=== PATIENT | female | born 1980 | race Caucasian/White ===

== ENCOUNTER 2023-05-31 16:50 | Inpatient (IN) | payer BC, SELFPAY ==
--- NOTE | ~2023-05-31 | XR_ITS ---
EXAM: XR abdomen NG/feed tube insert DATE: 05/31/2023 20:24 HISTORY: SBO . COMPARISON: 09/17/2016. FINDINGS: Cholecystectomy clips. NG tube, tip and side port projecting over the stomach Clear lung ba ses. Normal bowel gas pattern. No organomegaly. No abnormal abdominal calcification. Regional bones a nd soft tissues normal for age. IMPRESSION: NG tube, in good position. Reviewed, dictated and finalized at location K. IMPRESSION: NG tube, in good position.
--- NOTE | ~2023-05-31 | CT_ITS ---
EXAMINATION: CT abdomen pelvis w con DATE: 05/31/2023 17:20 INDICATION: pain, hx of sbo TECHNIQUE: Computed tomography (CT) of the abdomen and pelvis was performed with 100 mL Omnipaque-350 intravenous contrast. Automated exposure control and iterative reconstruction technique were employe d. The dose-length product was 716.95 mGy-cm. COMPARISON: 09/17/2016. FINDINGS: Lower thorax: Unremarkable Liver: Normal. Biliary/Gallbladder: Gallbladder is absent. No bile duct dilation. Pancreas: No mass or duct dilation. Spleen: Normal. Adrenals:No mass. Kidneys: No mass, stone, or hydronephrosis. No large bowel dilation. Short segment narrowing of the colon at the junction of the cecum and ascend ing colon. Mild distal esophageal and gastric wall edema. Loop of dilated small bowel in the pelvis, with a focal transition point in the mid lower abdomen (coronal image 56/116). Fecalization of small bowel content. Normal appendix. Mesentery/Peritoneum: No ascites, mass, or free air. Retroperitoneum: No mass. Pelvis: The uterus is surgically absent. Small volume free pelvic fluid Soft Tissues: Soft tissues and body wall unremarkable. Bones: No acute osseous finding. IMPRESSION: Findings concerning for partial or early complete distal small bowel obstruction, with a focal transi tion point in the mid lower abdomen. Short segment narrowing in the right colon at the junction of the cecum and ascending colon, consider nonemergent outpatient referral for colonoscopy. Reviewed, dictated and finalized at location K. IMPRESSION: Findings concerning for partial or early complete distal small bowel obstructio n, with a focal transition point in the mid lower abdomen. Short segment narrowing in the right colon at the junction of the cecum and asc ending colon, consider nonemergent outpatient referral for colonoscopy.
--- NOTE | ~2023-05-31 | XR_ITS ---
EXAMINATION: XR sm bowel follow through WS DATE: 06/01/2023 16:57 INDICATION: Small bowel obstruction. TECHNIQUE: Oral contrast was administered, and a time course of radiographs of the abdomen was obtain ed. Fluoroscopy of the small bowel was not performed. Fluoroscopy exposure time was 0 minutes. The to summer number of images was 6. COMPARISON: CT abdomen pelvis 05/31/2023 FINDINGS: The nasogastric tube tip is in the stomach. Surgical clips in the right upper quadrant are likely fro m cholecystectomy. There are no dilated loops of bowel. Transit time from the stomach to proximal col on was approximately 3 hours. IMPRESSION: 1. Nonobstructive bowel gas pattern. Reviewed, dictated and finalized at location A.
--- NOTE | ~2023-05-31 | XR_ITS ---
Supine and upright views of the abdomen Clinical history: NG tube placement COMPARISON: 05/31/2023 Findings: NG tube is in satisfactory position. Bowel gas pattern is nonspecific. No evidence for obst ruction or free air. Cholecystectomy clips are present. No abnormal mass lesion or calcification is s een. Osseous structures are intact. Impression: NG tube in satisfactory position. Nonspecific bowel gas pattern. Reviewed, dictated and finalized at location . Impression: NG tube in satisfactory position. Nonspecific bowel gas pattern.
[2023-05-31 16:53] VITALS: BP 123/71; PULSE 85; RESP 16; TEMP 36.3; O2SAT 100
[2023-05-31 17:13] LABS: Basophils Percent Auto 0.4 % (0.2-1.2); Eosinophils Absolute Auto 0.1 K/mm3 (0-0.3); Hemoglobin 13.7 g/dL (12.0-15.0); Immature Granulocyte Absolute 0.02 K/mm3 (0.00-0.031); Immature Granulocyte Percent A 0.3 % (0-0.5); Lymphocytes Absolute Auto 2.76 K/mm3 (0.9-3.2); Mean Corpuscular HGB Conc 32.6 g/dl (32-36); Mean Corpuscular Hemoglobin 32.8 pg (26-34); Mean Corpuscular Volume 100.5 fl (80-100); Mean Platelet Volume 9.3 fl (7.4-10.4); Monocytes Absolute Auto 0.6 K/mm3 (0.1-0.6); Monocytes Percent Auto 8.1 % (2.6-8.5); Neutrophils Absolute Auto 3.8 K/mm3 (1.3-6.7); Neutrophils Percent Auto 52.2 % (45.5-73.1); Platelet Count Result 313 k/mm3 (150-375); Red Blood Count 4.18 M/mm3 (4.2-5.4); Red Cell Distribution Width 12.3 % (11.5-14.5); White Blood Count 7.3 K/mm3 (4.5-10.0)
[2023-05-31 17:21] LABS: Lactic Acid Reflex 0.9 mmol/L (0.7-2.0)
[2023-05-31 17:23] LABS: Alanine Aminotransferase 24 U/L (6-35); Albumin Level 4.5 g/dL (3.5-5.1); Alkaline Phosphatase 50 U/L (38-126); Anion Gap 8 mmol/L (8-16); Aspartate Amino Transferase 29 U/L (14-36); Bilirubin,Total 0.4 mg/dL (0.2-1.3); Blood Urea Nitrogen 18 mg/dL (7-17); Calcium 9.2 mg/dL (8.4-10.2); Carbon Dioxide 27 mmol/L (22-30); Chloride 103 mmol/L (98-107); Estimated CRCL calculation 96 ml/min; Estimated Glomerular Filt Rate > 60; Glucose 114 mg/dL (65-110); Lipase 233 U/L (23-300); Potassium 4.4 mmol/L (3.4-5.0); Sodium 138 mmol/L (137-145)
--- NOTE | 2023-05-31 18:04 | ED.ABDPAIN ---
HPI - Abdominal Pain General Chief Complaint: Abdominal Pain Stated Complaint: abd pain Time Seen by Provider: 05/31/23 17:33 History of Present Illness HPI narrative: Patient is a 43-year-old female presenting with lower abdominal pain. Patient states that she has had numerous surgeries on her abdomen related to endometriosis. States that she had a small bowel obstruction several years ago that was treated with an NG tube. States that she has had worsening lower abdominal pain over the last 8 days. States that she last had a bowel movement about 5 days ago. States that she has had decreased appetite but no vomiting. States she is still tolerating p.o. intake. Denies fevers or chills, chest pain, shortness of breath, cough, flank pain, dysuria, leg swelling. Related Data Home Medications Medication Instructions Recorded Confirmed fluoxetine 20 mg capsule 20 mg PO DAILY 05/31/23 05/31/23 Allergies Allergy/AdvReac Type Severity Reaction Status Date / Time oxcarbazepine Allergy Mild HIVES Verified 09/17/16 00:42 Review of Systems Review of Systems: All systems reviewed & are unremarkable except as noted in HPI and below PMFSH Past Medical History Medical History (Updated 06/09/23 @ 15:53 by Rolanda Bernal MD) Depression Surgical History Surgical History (Updated 06/01/23 @ 14:24 by Agustín Gilliam DO) History of laparoscopy History of laparoscopy-assisted vaginal hysterectomy History of umbilical hernia repair Family History Family History Mother Patient's mother is in good health Father Patient's father is in good health Sibling Patient's sister is in good health Other Cerebrovascular accident Social History Social History Smoking status: Former smoker Tobacco type: cigarettes Alcohol intake: current Drinks per week: 3 Substance use: never Substance use type: does not use Lack of Transportation: No Lack of Food: Never True Current Housing: I Have Housing Concerned About Future Housing: No Difficulty Paying Gas/Electric Bills: No Difficulty Paying for Meds: No Currently Unemployed: No Education: High School Diploma/GED Difficulty w/ Childcare or Family Care: No Spiritual care concerns: No Exam Narrative: GENERAL: Distressed secondary to abdominal pain, cooperative and pleasant HEAD: Normocephalic, atraumatic. EYES: PERRLA and EOMI. ENT: Nares clear, no rhinorrhea or epistaxis. Mucous membranes moist. NECK: Supple. CHEST: No respiratory distress. HEART: Regular rate and rhythm ABDOMEN: Soft, tender left lower quadrant with voluntary guarding, no rebound EXTREMITIES: Normal range of motion. No edema. SKIN: Warm, dry, no rash. NEURO: No focal deficits. Alert and oriented x3. PSYCH: Normal mood and affect. Course Vital Signs Vital signs: Vital Signs Temperature 97.4 F L 05/31/23 16:53 Pulse Rate 85 05/31/23 16:53 Respiratory Rate 16 05/31/23 16:53 Blood Pressure 123/71 05/31/23 16:53 Pulse Oximetry 100 05/31/23 16:53 Temperature 97.7 F 06/03/23 05:00 Pulse Rate 61 06/03/23 05:00 Respiratory Rate 14 06/03/23 05:00 Blood Pressure 100/65 06/03/23 05:00 Pulse Oximetry 92 06/03/23 05:00 Oxygen Delivery Room Air 06/02/23 20:00 MDM - Abdominal Pain MDM Narrative Medical decision making narrative: Patient is a 43-year-old female presenting with lower abdominal pain. Vitals within normal limits. Exam remarkable for the above. CT abdomen pelvis is concerning for partial versus early complete bowel obstruction with a focal transition point in the mid lower abdomen. Patient received IV Dilaudid with improvement in her pain. Her blood work is reassuring. Lactic acid is normal. Patient with some soft pressures following the Dilaudid, fluids are ongoing. Call out to surgery. Surgery was con
[2023-05-31 18:14] LABS: Appearance Urine Clear (Clear); Bilirubin Urine Negative (Negative); Blood Urine Negative (Negative); Color Urine Yellow (Yellow); Glucose Urine UA Negative (Negative); Ketones Urine Negative (Negative); Leukocyte Esterase Ur Negative LEU/UL (Negative); Nitrate Urine Negative (Negative); Protein Urine Negative (Negative); Urobilinogen Urine 0.2 mg/dL (<2.0)
[2023-05-31 18:18] LABS: Specific Grav Ur 1.095 (1.001-1.035)
[2023-05-31 18:19] LABS: Add Urine Microscopic? NO
[2023-05-31] MEDS: LACTATED RINGERS 1,000 ML 999 ML IV CONT ×2 (18:21→20:06)
[2023-05-31] MEDS: HYDROmorphone HCL INJ (*CRX) 1 MG/ML SYR IV PUSH ×2 (18:22→21:37)
[2023-05-31 18:26] VITALS: BP 93/56; PULSE 75; RESP 18; TEMP 36.5; O2SAT 100
[2023-05-31 19:16] VITALS: BP 99/52; PULSE 70; RESP 20; O2SAT 100
[2023-05-31 20:07] VITALS: BP 108/66; PULSE 84; RESP 20; O2SAT 99
[2023-05-31] MEDS: LORazepam INJ (*CRX) 2 MG/ML VIAL 0.5 MG IV PUSH (20:12)
--- NOTE | 2023-05-31 21:08 | PC.NURSE ---
Spoke with Dr. Vinson at this time r/t patient pain. New order received for dilaudid 1 mg IVP x1.
[2023-05-31] MEDS: LACTATED RINGERS 1,000 ML 100 ML IV CONT (21:38)
[2023-05-31 22:00] VITALS: BP 104/53; PULSE 73; RESP 14; TEMP 36.6; O2SAT 99
--- NOTE | 2023-05-31 22:42 | PM.IMHP ---
H&P: HPI History of Present Illness Date/Time: 05/31/23 22:42 Chief Complaint: Worsening abdominal pain. Narrative: This is a 43-year-old lady with a past medical history including but not limited to on the med doses, status post multiple abdominal intervention, a in an episode of small-bowel obstruction 5 years ago who is presenting with lower abdominal pain.? Patient states that she has had numerous surgeries on her abdomen related to endometriosis.? She reports an episode of small bowel obstruction several years ago that was managed conservatively with NPO, NG tube placement.? The patient was in her usual state of health until 8 days ago. She states that she has had worsening lower abdominal pain over the last 8 days.? Her last bowel movement was about 5 days ago.? The patient endorses decreased appetite but denied vomiting.? At the time of her admission she was still able to tolerate p.o. intake.? Denies fevers or chills, chest pain, shortness of breath, cough, flank pain, dysuria, leg swelling. At the time of her presentation, the patient is stable and afebrile with the following vital signs: A temperature of 97.4?, pulse rate 85, respirations 16, blood pressure 123/70 with a pulse ox of 100% on room air. Her CBC shows a WBC of 7.3, hemoglobin 13.7, hematocrit 40 toward the present count of 313. Her chemistry shows a sodium of 138, potassium 4.4, chloride 103, bicarbonate 27, BUN 18, creatinine 0.7 and blood glucose 114. The patient underwent a CT scan of the abdomen/pelvis with the following findings: Findings concerning for partial or early complete distal small bowel obstruction, with a focal transition point in the mid lower abdomen. Short segment narrowing in the right colon at the junction of the cecum and ascending colon, consider nonemergent outpatient referral for colonoscopy. The surgical service was consulted. Per surgery recommendation, the patient will be admitted under hospitalist service and managed with NPO, NG tube placement, IV fluid, and pain management. The patient is admitted as an inpatient for at least 2 midnights. Review of Systems Review of Systems: All systems reviewed & are unremarkable except as noted in HPI and below PMFSH Family History Family History Mother Patient's mother is in good health Father Patient's father is in good health Sibling Patient's sister is in good health Other Cerebrovascular accident Social History Social History Alcohol intake: current Meds Home Medications and Allergies Home Medications Medication Instructions Recorded Confirmed Type fluoxetine 20 mg capsule 20 mg PO DAILY 05/31/23 05/31/23 History Allergies Allergy/AdvReac Type Severity Reaction Status Date / Time oxcarbazepine Allergy Mild HIVES Verified 09/17/16 00:42 Vital Signs Vital Signs - 24 hr 05/31/23 16:53 05/31/23 18:26 05/31/23 19:16 Temperature 97.4 F L 97.7 F Pulse Rate 85 75 70 Respiratory Rate 16 18 20 Blood Pressure 123/71 93/56 L 99/52 L Pulse Oximetry 100 100 100 05/31/23 20:07 05/31/23 22:00 Temperature 97.8 F Pulse Rate 84 73 Respiratory Rate 20 14 Blood Pressure 108/66 104/53 L Pulse Oximetry 99 99 Exam Narrative: GENERAL: Distressed secondary to abdominal pain, cooperative and pleasant HEAD: Normocephalic, atraumatic. EYES: PERRLA and EOMI. ENT: Nares clear, no rhinorrhea or epistaxis. Mucous membranes moist. NECK: Supple. CHEST: No respiratory distress. HEART: Regular rate and rhythm ABDOMEN: Soft, tender bilateral lower quadrant with voluntary guarding, no rebound EXTREMITIES: Normal range of motion. No edema. SKIN: Warm, dry, no rash. NEURO: No focal deficits. Alert and oriented x3. PSYCH: Normal mood and affect. H&P: Results Labs Labs: Short CBC 05/31/23 Range/Units 17:05 WBC 7.3 (4.5-10.0) K/mm3 Hgb 13.7 (12.0-
[2023-06-01] MEDS: HYDROmorphone HCL INJ (*CRX) 1 MG/ML SYR 2 MG IV PUSH ×7 (00:06→17:33)
[2023-06-01 06:00] VITALS: BP 106/46; PULSE 80; RESP 14; TEMP 36.6; O2SAT 96
[2023-06-01 06:16] LABS: Hematocrit 41.4 % (37.0-47.0); Hemoglobin 13.5 g/dL (12.0-15.0); Mean Corpuscular HGB Conc 32.6 g/dl (32-36); Mean Corpuscular Hemoglobin 32.5 pg (26-34); Mean Corpuscular Volume 99.8 fl (80-100); Platelet Count Result 280 k/mm3 (150-375); Red Blood Count 4.15 M/mm3 (4.2-5.4); White Blood Count 7.4 K/mm3 (4.5-10.0)
[2023-06-01 06:36] LABS: Anion Gap 4 mmol/L (8-16); Blood Urea Nitrogen 10 mg/dL (7-17); Calcium 8.9 mg/dL (8.4-10.2); Carbon Dioxide 28 mmol/L (22-30); Chloride 102 mmol/L (98-107); Estimated CRCL calculation 111 ml/min; Estimated Glomerular Filt Rate > 60; Glucose 125 mg/dL (65-110); Magnesium 1.8 mg/dL (1.6-2.3); Potassium 3.5 mmol/L (3.4-5.0); Sodium 134 mmol/L (137-145)
[2023-06-01] MEDS: LACTATED RINGERS 1,000 ML 100 ML IV CONT (08:28)
[2023-06-01] MEDS: ENOXAPARIN 40 MG/0.4 ML SYRINGE SUB-Q (08:29)
--- NOTE | 2023-06-01 11:58 | PM.IMPN ---
Progress Note: A&P Assessment and Plan (1) SBO (small bowel obstruction): Code(s): K56.609 - Unspecified intestinal obstruction, unspecified as to partial versus complete obstruction Status: Acute Assessment and Plan: Patient not yet passing gas, IV fluids running. NGT to suction. Bowel sounds present but distant in RLQ. Bilateral lower quadrant tender to palpation, no rebound. Continue bowel rest, NG tube and IV fluids. Surgical consult placed, appreciate all recommendations. (2) Nausea: Code(s): R11.0 - Nausea Status: Acute Assessment and Plan: In addition to pain, patient experiencing nausea, no vomiting since NG placement. Ordered IV Zofran and Compazine PRN for nausea/vomiting. (3) History of depression: Code(s): Z86.59 - Personal history of other mental and behavioral disorders Status: Acute Assessment and Plan: Stable, normal mood and affect at this time. Will restart home medication when tolerating PO intake. Plan Continue NPO status NG to suction IV fluids, IV antiemetics and pain medication as needed Surgical consult Once passing gas, will plan to ADAT starting with clear liquids while NG clamped. Time Spent With Patient Time with patient: 25 - 35 minutes Subjective Date/time seen: 06/01/23 11:00 Interval history: Copied from previous chart: Chief Complaint: Worsening abdominal pain. Narrative: This is a 43-year-old lady with a past medical history including but not limited to on the med doses, status post multiple abdominal intervention, a in an episode of small-bowel obstruction 5 years ago who is presenting with lower abdominal pain.? Patient states that she has had numerous surgeries on her abdomen related to endometriosis.? She reports an episode of small bowel obstruction several years ago that was managed conservatively with NPO, NG tube placement.? The patient was in her usual state of health until 8 days ago.? She states that she has had worsening lower abdominal pain over the last 8 days.? Her last bowel movement was about 5 days ago.? The patient endorses? decreased appetite but denied vomiting.? At the time of her admission she was still able to tolerate? p.o. intake.? Denies fevers or chills, chest pain, shortness of breath, cough, flank pain, dysuria, leg swelling. At the time of her presentation, the patient is stable and afebrile with the following vital signs:? A temperature of 97.4?, pulse rate 85, respirations 16, blood pressure 123/70 with a pulse ox of 100% on room air.? Her CBC shows a WBC of 7.3, hemoglobin 13.7, hematocrit 40 toward the present count of 313.? Her chemistry shows a sodium of 138, potassium 4.4, chloride 103, bicarbonate 27, BUN 18, creatinine 0.7 and blood glucose 114.? The patient underwent a CT scan of the abdomen/pelvis with the following findings: ? Findings concerning for partial or early complete distal small bowel obstruction, with a focal transition point in the mid lower abdomen. Short segment narrowing in the right colon at the junction of the cecum and ascending colon, consider nonemergent outpatient referral for colonoscopy.? The surgical service was consulted.? Per surgery recommendation, the patient will be admitted under hospitalist service and managed with NPO, NG tube placement, IV fluid, and pain management. The patient is admitted as an inpatient for at least 2 midnights. 06/01 Rounding: Patient reports she has continued nausea and lower abdominal pain. She is not yet passing gas. She has had no vomiting since NG tube placement. Patient reports that she has had 1 prior episode of small-bowel obstruction that was managed medically. Surgery has been consulted but has not yet seen the patient per patient report. IV fluids and pain management are on board, patient requesting medication for nausea. Review of Systems Review of Systems: All systems reviewed & are unremarkable except as noted in HPI and below Exam Na
[2023-06-01 12:13] LABS: Glucose Point of Care 107 mg/dl (65-105)
[2023-06-01] MEDS: ONDANSETRON INJ 4 MG/2 ML VIAL IV PUSH ×2 (12:43→17:38)
--- NOTE | 2023-06-01 14:19 | PM.CNGS ---
Assessment and Plan Assessment and plan (1) SBO (small bowel obstruction): Code(s): K56.609 - Unspecified intestinal obstruction, unspecified as to partial versus complete obstruction Status: Acute Assessment and Plan: I have reviewed the imaging and discussed the findings with the patient. She has evidence of a distal small-bowel obstruction. This is similar presentation to what she had fiber 6 years ago. She is feeling somewhat better since the NG tube was placed but is still not passing flatus. Abdominal x-ray this morning shows nonspecific bowel gas pattern. I would like to get a Gastrografin small-bowel follow-through to further assess for partial versus complete obstruction. Discussed with patient possibility of slowly advancing diet if there is no obstruction. Also discussed possible need for surgery if complete obstruction is identified. Patient voiced her understanding. History of Present Illness Consult details Consult date: 06/01/23 Reason for consult: other (Small-bowel obstruction) Requesting physician: Rolanda Bernal MD Narrative: This is a 43-year-old woman who I am asked to see for a small-bowel obstruction. She presented to the emergency department yesterday with worsening bloating and nausea. She has not had a bowel movement for 6 days other than a couple small episodes of diarrhea. She states that she typically has regular bowel movements and eats very healthy. She was in [facility] and began experiencing some of this bloating and cramping. This continued to worsen despite trying to eat a high-fiber diet and drinking plenty of water. She was constantly feeling full and had to force herself to try to eat. She does have a history of small-bowel obstruction in the past. She states that this was about 5 or 6 years ago and was treated with NG decompression and bowel rest. In the emergency department she was noted to have evidence of a small-bowel obstruction with partial or complete distal transition point. NG tube was placed in the emergency department but has not had much output all since being placed. She denies passing any flatus. Her pain is mostly in the left lower quadrant and it is more colicky crampy pain. Review of Systems Review of Systems: All systems reviewed & are unremarkable except as noted in HPI and below Constitutional: Constitutional: Denies chills and Denies fever(s) Eyes: Eyes: Denies change in vision ENT: Denies hearing loss, Denies neck pain and Denies sore throat Cardiovascular: Cardiovascular: Denies chest pain and Denies dyspnea Respiratory: Respiratory: Denies cough, Denies dyspnea and Denies wheezing Gastrointestinal: Gastrointestinal: Reports as per HPI Genitourinary: Genitourinary: Denies hematuria and Denies dysuria Musculoskeletal: Musculoskeletal: Denies arthralgias, Denies joint swelling and Denies neck pain Allergic/Immunologic: Allergic/Immunologic: Denies wheezing [facility] Past Medical History Medical History (Updated 06/01/23 @ 14:24 by Agustín Gilliam DO) Depression Surgical History Surgical History (Updated 06/01/23 @ 14:24 by Agustín Gilliam DO) History of laparoscopy History of laparoscopy-assisted vaginal hysterectomy History of umbilical hernia repair Family History Family History Mother Patient's mother is in good health Father Patient's father is in good health Sibling Patient's sister is in good health Other Cerebrovascular accident Social History Social History Smoking status: Former smoker Tobacco type: cigarettes Alcohol intake: current Drinks per week: 3 Substance use: never Substance use type: does not use Lack of Transportation: No Lack of Food: Never True Current Housing: I Have Housing Concerned About Future Housing: No Difficulty Paying Gas/Electric Bills: No
[2023-06-01 18:09] VITALS: BP 106/58; PULSE 84; RESP 14; TEMP 36.7; O2SAT 91
[2023-06-01 20:00] VITALS: PULSE 84; RESP 14; O2SAT 91
[2023-06-01] MEDS: PROCHLORPERAZINE EDISYLATE 10 MG/2 ML VIAL IV PUSH (20:14)
[2023-06-01 21:38] VITALS: BP 99/49; PULSE 103; RESP 14; TEMP 36.9; O2SAT 95
[2023-06-02] MEDS: LACTATED RINGERS 1,000 ML 100 ML IV CONT (04:00)
[2023-06-02 06:00] VITALS: BP 110/51; PULSE 68; RESP 14; TEMP 37.2; O2SAT 95
[2023-06-02 06:22] LABS: Basophils Percent Auto 0.4 % (0.2-1.2); Eosinophils Percent Auto 0.2 % (0-4.4); Hematocrit 36.6 % (37.0-47.0); Hemoglobin 11.9 g/dL (12.0-15.0); Immature Granulocyte Absolute 0.01 K/mm3 (0.00-0.031); Immature Granulocyte Percent A 0.2 % (0-0.5); Lymphocytes Absolute Auto 1.81 K/mm3 (0.9-3.2); Lymphocytes Percent Auto 39.9 % (18.3-44.2); Mean Corpuscular HGB Conc 32.5 g/dl (32-36); Mean Corpuscular Hemoglobin 32.3 pg (26-34); Mean Corpuscular Volume 99.5 fl (80-100); Mean Platelet Volume 8.8 fl (7.4-10.4); Monocytes Absolute Auto 0.5 K/mm3 (0.1-0.6); Monocytes Percent Auto 11.2 % (2.6-8.5); Neutrophils Absolute Auto 2.2 K/mm3 (1.3-6.7); Neutrophils Percent Auto 48.1 % (45.5-73.1); Platelet Count Result 231 k/mm3 (150-375); Red Blood Count 3.68 M/mm3 (4.2-5.4); Red Cell Distribution Width 11.7 % (11.5-14.5); White Blood Count 4.5 K/mm3 (4.5-10.0)
[2023-06-02 06:38] LABS: Alanine Aminotransferase 19 U/L (6-35); Albumin Level 3.6 g/dL (3.5-5.1); Alkaline Phosphatase 43 U/L (38-126); Anion Gap 2 mmol/L (8-16); Aspartate Amino Transferase 18 U/L (14-36); Bilirubin,Total 0.5 mg/dL (0.2-1.3); Blood Urea Nitrogen 9 mg/dL (7-17); Calcium 8.5 mg/dL (8.4-10.2); Carbon Dioxide 32 mmol/L (22-30); Chloride 103 mmol/L (98-107); Estimated CRCL calculation 111 ml/min; Estimated Glomerular Filt Rate > 60; Glucose 91 mg/dL (65-110); Lipase 418 U/L (23-300); Potassium 3.8 mmol/L (3.4-5.0); Sodium 137 mmol/L (137-145)
[2023-06-02] MEDS: ONDANSETRON INJ 4 MG/2 ML VIAL IV PUSH (09:02)
[2023-06-02] MEDS: ENOXAPARIN 40 MG/0.4 ML SYRINGE SUB-Q (09:02)
--- NOTE | 2023-06-02 09:20 | PM.IMPN ---
Progress Note: A&P Assessment and Plan (1) SBO (small bowel obstruction): Code(s): K56.609 - Unspecified intestinal obstruction, unspecified as to partial versus complete obstruction Status: Acute Assessment and Plan: Small-bowel follow-through showed nonobstructive pattern. Patient had accidental bowel movement overnight. She has mildy hypoactive bowel sounds throughout. Left lower quadrant tenderness. Patient was given clear liquid diet overnight did not take much for dinner. This morning she is willing to try full liquids. (2) Nausea: Code(s): R11.0 - Nausea Status: Acute Assessment and Plan: Improved, PRN Zofran and Compazine available. NG tube was removed last night (3) History of depression: Code(s): Z86.59 - Personal history of other mental and behavioral disorders Status: Acute Assessment and Plan: Stable, normal mood and affect at this time. Plan Advance diet as tolerated IV fluids, IV antiemetics and pain medication as needed Time Spent With Patient Time with patient: 25 - 35 minutes Subjective Date/time seen: 06/02/23 08:00 Interval history: Copied from previous chart: Chief Complaint: Worsening abdominal pain. Narrative: This is a 43-year-old lady with a past medical history including but not limited to on the med doses, status post multiple abdominal intervention, a in an episode of small-bowel obstruction 5 years ago who is presenting with lower abdominal pain.? Patient states that she has had numerous surgeries on her abdomen related to endometriosis.? She reports an episode of small bowel obstruction several years ago that was managed conservatively with NPO, NG tube placement.? The patient was in her usual state of health until 8 days ago.? She states that she has had worsening lower abdominal pain over the last 8 days.? Her last bowel movement was about 5 days ago.? The patient endorses? decreased appetite but denied vomiting.? At the time of her admission she was still able to tolerate? p.o. intake.? Denies fevers or chills, chest pain, shortness of breath, cough, flank pain, dysuria, leg swelling. At the time of her presentation, the patient is stable and afebrile with the following vital signs:? A temperature of 97.4?, pulse rate 85, respirations 16, blood pressure 123/70 with a pulse ox of 100% on room air.? Her CBC shows a WBC of 7.3, hemoglobin 13.7, hematocrit 40 toward the present count of 313.? Her chemistry shows a sodium of 138, potassium 4.4, chloride 103, bicarbonate 27, BUN 18, creatinine 0.7 and blood glucose 114.? The patient underwent a CT scan of the abdomen/pelvis with the following findings: ? Findings concerning for partial or early complete distal small bowel obstruction, with a focal transition point in the mid lower abdomen. Short segment narrowing in the right colon at the junction of the cecum and ascending colon, consider nonemergent outpatient referral for colonoscopy.? The surgical service was consulted.? Per surgery recommendation, the patient will be admitted under hospitalist service and managed with NPO, NG tube placement, IV fluid, and pain management. The patient is admitted as an inpatient for at least 2 midnights. 06/01 Rounding: Patient reports she has continued nausea and lower abdominal pain. She is not yet passing gas. She has had no vomiting since NG tube placement. Patient reports that she has had 1 prior episode of small-bowel obstruction that was managed medically. Surgery has been consulted but has not yet seen the patient per patient report. IV fluids and pain management are on board, patient requesting medication for nausea. 06/02 Rounding: Patient reports that she did have an accidental bowel movement while sleeping overnight. Patient reports that her nausea is much improved her pain seems to be concentrated to the left lower quadrant of the abdomen. Patient denies any difficulty breathing, chest pain or any
--- NOTE | 2023-06-02 13:22 | PM.PNGS ---
Progress Note: A&P Assessment and Plan (1) SBO (small bowel obstruction): Code(s): K56.609 - Unspecified intestinal obstruction, unspecified as to partial versus complete obstruction Status: Acute Assessment and Plan: Continue clear liquids. Advance diet once pain has resolved. Subjective Subjective Date/Time Seen: 06/02/23 13:22 Interval history: Bowels moving. NG removed yesterday afternoon. Still having LLQ pain. Not ambulating much yet. Exam GI: Inspection: non-distended GI Palp: Yes Soft to palpation and Yes Tenderness to palpation present (GI) (LLQ) Auscultation: normal bowel sounds Objective Data Vital Signs Vital Signs: Vital Signs - 24 hr 06/01/23 18:09 06/01/23 20:00 06/01/23 21:38 Temperature 36.7 C 36.9 C Pulse Rate 84 84 103 H Respiratory Rate 14 14 14 Blood Pressure 106/58 L 99/49 L Pulse Oximetry 91 91 95 Oxygen Delivery Room Air 06/02/23 06:00 Temperature 37.2 C Pulse Rate 68 Respiratory Rate 14 Blood Pressure 110/51 L Pulse Oximetry 95 Oxygen Delivery Intake/Output Intake/Output: Intake & Output 05/30/23 05/31/23 06/01/23 06/02/23 23:59 23:59 23:59 23:59 Intake Total 1000 2360 240 Balance 1000 2360 240 Meds/Results Medications: Active Medications Generic Name Dose Route Start Last Admin Trade Name Freq PRN Reason Stop Dose Admin Enoxaparin Sodium 40 mg 06/01/23 09:00 06/02/23 09:02 Enoxaparin 40 Mg/0.4 Ml Syringe SUB-Q 40 mg DAILY TAMIKO Administration Hydromorphone HCl 2 mg 05/31/23 23:52 06/01/23 17:33 Hydromorphone Hcl Inj (*Crx) 1 Mg/Ml Syr IV PUSH 2 mg Q2H PRN Administration Pain Rated 7-10 Ondansetron HCl 4 mg 06/01/23 12:23 06/02/23 09:02 Ondansetron Inj 4 Mg/2 Ml Vial IV PUSH 4 mg Q4H PRN Administration Nausea And Vomiting Prochlorperazine Edisylate 10 mg 06/01/23 12:23 06/01/23 20:14 Prochlorperazine Edisylate 10 Mg/2 Ml Vial IV PUSH 10 mg Q6H PRN Administration Nausea And Vomiting Radiology Results: ITS Impressions Abdomen/Pelvis CT 05/31/23 17:49 IMPRESSION: Findings concerning for partial or early complete distal small bowel obstruction, with a focal transition point in the mid lower abdomen. Short segment narrowing in the right colon at the junction of the cecum and ascending colon, consider nonemergent outpatient referral for colonoscopy. Abdomen X-Ray 06/01/23 05:44 Impression: NG tube in satisfactory position. Nonspecific bowel gas pattern. Small Bowel X-Ray 06/01/23 16:59 IMPRESSION: 1. Nonobstructive bowel gas pattern. Labs Labs: Laboratory Results - last 24 hr 06/02/23 06:07 WBC 4.5 RBC 3.68 L Hgb 11.9 L Hct 36.6 L MCV 99.5 MCH 32.3 MCHC 32.5 RDW 11.7 Plt Count 231 MPV 8.8 Immature Gran % (Auto) 0.2 Neut % (Auto) 48.1 Lymph % (Auto) 39.9 [place] % (Auto) 11.2 H Eos % (Auto) 0.2 Baso % (Auto) 0.4 Lymph # (Auto) 1.81 [place] # (Auto) 0.5 Eos # (Auto) 0.0 Baso # (Auto) 0.0 Abs Immat Gran (auto) 0.01 Absolute Neuts (auto) 2.2 Absolute Nucleated RBC 0.0 Nucleated RBC % 0.0 Sodium 137 Potassium 3.8 Chloride 103 Carbon Dioxide 32 H Anion Gap 2 L BUN 9 Creatinine 0.60 L Estim Creat Clear Calc 111 Estimated GFR > 60 Glucose 91 Calcium 8.5 Total Bilirubin 0.5 AST 18 ALT 19 Alkaline Phosphatase 43 Total Protein 6.0 L Albumin 3.6 Lipase 418 H
[2023-06-02 14:00] VITALS: BP 94/56; PULSE 63; RESP 18; TEMP 36.4; O2SAT 98
[2023-06-02] MEDS: ACETAMINOPHEN 325 MG TABLET 650 MG PO (17:43)
[2023-06-02 19:51] VITALS: BP 113/78; PULSE 79; RESP 16; TEMP 36.6; O2SAT 98
[2023-06-03 05:00] VITALS: BP 100/65; PULSE 61; RESP 14; TEMP 36.5; O2SAT 92
[2023-06-03 07:39] LABS: Basophils Percent Auto 0.3 % (0.2-1.2); Eosinophils Absolute Auto 0.1 K/mm3 (0-0.3); Eosinophils Percent Auto 1.5 % (0-4.4); Hematocrit 38.2 % (37.0-47.0); Hemoglobin 12.3 g/dL (12.0-15.0); Immature Granulocyte Absolute 0.01 K/mm3 (0.00-0.031); Immature Granulocyte Percent A 0.3 % (0-0.5); Lymphocytes Absolute Auto 1.83 K/mm3 (0.9-3.2); Lymphocytes Percent Auto 46.1 % (18.3-44.2); Mean Corpuscular HGB Conc 32.2 g/dl (32-36); Mean Corpuscular Hemoglobin 32.3 pg (26-34); Mean Corpuscular Volume 100.3 fl (80-100); Mean Platelet Volume 9.9 fl (7.4-10.4); Monocytes Absolute Auto 0.4 K/mm3 (0.1-0.6); Monocytes Percent Auto 10.1 % (2.6-8.5); Neutrophils Absolute Auto 1.7 K/mm3 (1.3-6.7); Neutrophils Percent Auto 41.7 % (45.5-73.1); Platelet Count Result 255 k/mm3 (150-375); Red Blood Count 3.81 M/mm3 (4.2-5.4); Red Cell Distribution Width 11.6 % (11.5-14.5)
--- NOTE | 2023-06-03 08:22 | PM.PNGS ---
Progress Note: A&P Assessment and Plan (1) SBO (small bowel obstruction): Code(s): K56.609 - Unspecified intestinal obstruction, unspecified as to partial versus complete obstruction Status: Acute Assessment and Plan: Tolerating diet. OK to discharge from surgical standpoint. 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 Very possible that she has some partial chronic obstruction from adhesions. Could consider diagnostic laparoscopy, adhesiolysis as an outpatient if this is persisting. F/u in office to discuss further. Subjective Subjective Date/Time Seen: 06/03/23 08:22 Interval history: Tolerating diet. Pain improving. No nausea or vomiting. Short term bloating immediately after eating, but then this resolves. Exam GI: Inspection: non-distended GI Palp: Yes Soft to palpation and Yes Tenderness to palpation present (GI) (LLQ) Auscultation: normal bowel sounds Objective Data Vital Signs Vital Signs: Vital Signs - 24 hr 06/02/23 14:00 06/02/23 19:51 06/02/23 20:00 Temperature 36.4 C L 36.6 C Pulse Rate 63 79 Respiratory Rate 18 16 Blood Pressure 94/56 L 113/78 Pulse Oximetry 98 98 Oxygen Delivery Room Air 06/03/23 05:00 Temperature 36.5 C Pulse Rate 61 Respiratory Rate 14 Blood Pressure 100/65 Pulse Oximetry 92 Oxygen Delivery Intake/Output Intake/Output: Intake & Output 05/31/23 06/01/23 06/02/23 06/03/23 23:59 23:59 23:59 23:59 Intake Total 1000 2360 1890 400 Balance 1000 2360 1890 400 Meds/Results Medications: Active Medications Generic Name Dose Route Start Last Admin Trade Name Freq PRN Reason Stop Dose Admin Acetaminophen 650 mg 06/02/23 17:30 06/02/23 17:43 Acetaminophen 325 Mg Tablet PO 650 mg Q6H PRN Administration Mild Pain (1-3) or Fever Enoxaparin Sodium 40 mg 06/01/23 09:00 06/02/23 09:02 Enoxaparin 40 Mg/0.4 Ml Syringe SUB-Q 40 mg DAILY TAMIKO Administration Fluoxetine HCl 20 mg 06/03/23 09:00 Fluoxetine Hcl 20 Mg Capsule PO DAILY TAMIKO Hydromorphone HCl 2 mg 05/31/23 23:52 06/01/23 17:33 Hydromorphone Hcl Inj (*Crx) 1 Mg/Ml Syr IV PUSH 2 mg Q2H PRN Administration Pain Rated 7-10 Ondansetron HCl 4 mg 06/01/23 12:23 06/02/23 09:02 Ondansetron Inj 4 Mg/2 Ml Vial IV PUSH 4 mg Q4H PRN Administration Nausea And Vomiting Polyethylene Glycol 17 gm 06/03/23 09:00 Polyethylene Glycol 3350 17 Gm Powd.Pack PO QAM TAMIKO Prochlorperazine Edisylate 10 mg 06/01/23 12:23 06/01/23 20:14 Prochlorperazine Edisylate 10 Mg/2 Ml Vial IV PUSH 10 mg Q6H PRN Administration Nausea And Vomiting Radiology Results: ITS Impressions Abdomen/Pelvis CT 05/31/23 17:49 IMPRESSION: Findings concerning for partial or early complete distal small bowel obstruction, with a focal transition point in the mid lower abdomen. Short segment narrowing in the right colon at the junction of the cecum and ascending colon, consider nonemergent outpatient referral for colonoscopy. Abdomen X-Ray 06/01/23 05:44 Impression: NG tube in satisfactory position. Nonspecific bowel gas pattern. Small Bowel X-Ray 06/01/23 16:59 IMPRESSION: 1. Nonobstructive bowel gas pattern. Labs Labs: Laboratory Results - last 24 hr 06/03/23 06:50 WBC 4.0 L RBC 3.81 L Hgb 12.3 Hct 38.2 MCV 100.3 H MCH 32.3 MCHC 32.2 RDW 11.6 Plt Count 255 MPV 9.9 Immature Gran % (Auto) 0.3 Neut % (Auto) 41.7 L Lymph % (Auto) 46.1 H [place] % (Auto) 10.1 H Eos % (Auto) 1.5 Baso % (Auto) 0.3 Lymph # (Auto) 1.83 [place] # (Auto) 0.4 Eos # (Auto) 0.1 Baso # (Auto) 0.0 Abs Immat Gran (auto) 0.01 Absolute Neuts (auto) 1.7 Absolute Nucleated RBC 0.0 Nucleated RBC % 0.0
[2023-06-03] MEDS: polyethylene glycoL 3350 17 GM POWD.PACK PO (08:57)
[2023-06-03] MEDS: ENOXAPARIN 40 MG/0.4 ML SYRINGE SUB-Q (09:00)
[2023-06-03 09:03] LABS: Alanine Aminotransferase 18 U/L (6-35); Albumin Level 3.7 g/dL (3.5-5.1); Alkaline Phosphatase 42 U/L (38-126); Anion Gap 6 mmol/L (8-16); Aspartate Amino Transferase 21 U/L (14-36); Bilirubin,Total 0.4 mg/dL (0.2-1.3); Blood Urea Nitrogen 9 mg/dL (7-17); Calcium 8.7 mg/dL (8.4-10.2); Carbon Dioxide 28 mmol/L (22-30); Chloride 104 mmol/L (98-107); Estimated CRCL calculation 130 ml/min; Estimated Glomerular Filt Rate > 60; Glucose 103 mg/dL (65-110); Lipase 432 U/L (23-300); Potassium 3.8 mmol/L (3.4-5.0); Sodium 138 mmol/L (137-145)
[2023-06-03] MEDS: FLUoxetine HCL 20 MG CAPSULE PO (09:28)
--- NOTE | 2023-06-03 09:43 | PM.DS ---
DS: Admitting Diagnosis Discharge Date 06/03/2023 Admitting Diagnosis Small-bowel obstruction History of depression DS: Discharge Diagnosis Discharge Diagnosis (1) SBO (small bowel obstruction): Code(s): K56.609 - Unspecified intestinal obstruction, unspecified as to partial versus complete obstruction Status: Acute (2) Nausea: Code(s): R11.0 - Nausea Status: Acute (3) History of depression: Code(s): Z86.59 - Personal history of other mental and behavioral disorders Status: Acute Plan Patient will schedule clinic visit with General surgery to consider outpatient laparoscopic procedure. DS: Summary Hospital Course Reason for hospitalization: This is a 43-year-old female patient who was admitted to the hospital for medical management small-bowel obstruction. Patient has history 1 prior episode of small-bowel obstruction that resolved with bowel rest NG tube decompression and fluids. Hospital Course: Patient was admitted with NG tube to suction on IV fluids and NPO status with General surgery consult for recurrent small-bowel obstruction. Patient has been having issues with gaseous distension and decreased food intake for couple of months. Patient was having significant lower abdominal inability to pass gas inability to pass stool which is what prompted ER visit. She was also having nausea vomiting. Patient was treated conservatively. Barium follow-through was ordered took 3 hours for passage but there was no complete obstruction. NG tube was removed and patient passed a bowel movement overnight. She has tolerated greater than 24 hours oral intake including plenty of oral fluids and small amounts of low fiber diet. Patient reports that she has not had any nausea the last 12 hours no vomiting during hospitalization and her abdominal pain is nearly resolved. Plan is for patient to follow up with General surgery in the clinic to consider elective laparoscopic laparotomy to free any bowel adhesions from prior episodes of endometriosis. Status at Discharge Cognitive/behavioral status at discharge: Awake, alert, oriented and pleasant. Functional status at discharge: independent ambulation Overall status at discharge: patient is progressing back to baseline Time Spent with Patient Time attestation: Total time spent providing and/or coordinating discharge services: Time spent: Less than 30 minutes Exam Narrative: GENERAL: awake, alert and oriented, cooperative and pleasant HEAD: Normocephalic, atraumatic. EYES: PERRLA and EOMI. ENT: Nares clear, no rhinorrhea or epistaxis. Mucous membranes moist. NECK: Supple. No JVD CHEST: No respiratory distress. Lung sounds normal, no wheezes, rales or rhonchi. HEART: Regular rate and rhythm, no murmurs noted. ABDOMEN: Soft, improved mild LLQ tenderness, no rebound. Bowel sounds present in all quadrants, possibly mildly hypoactive EXTREMITIES: Normal range of motion. No edema. SKIN: Warm, dry, no rash. NEURO: No focal deficits. Alert and oriented x3. PSYCH: Normal mood and affect. DS: Data Data Completed and Pending Completed studies during hospitalization: CT scan abdomen/pelvis Pending studies at discharge: none Labs on day of discharge: Labs from last 24 hours 06/03/23 06:50 WBC 4.0 L RBC 3.81 L Hgb 12.3 Hct 38.2 MCV 100.3 H MCH 32.3 MCHC 32.2 RDW 11.6 Plt Count 255 MPV 9.9 Immature Gran % (Auto) 0.3 Neut % (Auto) 41.7 L Lymph % (Auto) 46.1 H [place] % (Auto) 10.1 H Eos % (Auto) 1.5 Baso % (Auto) 0.3 Lymph # (Auto) 1.83 [place] # (Auto) 0.4 Eos # (Auto) 0.1 Baso # (Auto) 0.0 Abs Immat Gran (auto) 0.01 Absolute Neuts (auto) 1.7 Absolute Nucleated RBC 0.0 Nucleated RBC % 0.0 Sodium 138 Potassium 3.8 Chloride 104 Carbon Dioxide 28 Anion Gap 6 L BUN 9 Creatinine 0.50 L Estim Creat Clear Calc 130 Estimated GFR > 60 Glucose 103 Calcium 8.7 Total Bilirubin 0.4 AST 21 ALT 18 Alkaline P
== END 2023-06-03 12:40 | disposition home or self-care (01) | DRG 390 ==
LOC: ANHED 18:27 → ANH3MEDSUR 20:29
PROVIDERS: Admitting Provider Internal Medicine; Emergency Provider Emergency Medicine; PCP Family Medicine Sports Medicine; Visit Provider Nurse Practitioner
DX: K56.51 Intestinal adhesions [bands], with partial obstruction (principal); F32.A Depression, unspecified; Z90.710 Acquired absence of both cervix and uterus; Z87.891 Personal history of nicotine dependence
CPT/HCPCS: 36415; 74177; 74250; 80048; 80053; 81003; 82948; 83605; 83690; 83735; 85025; 85027; 96361; 96372; 96374; 96375; 96376; 99285; A9270; G0378; J0780; J1170; J1650; J2060; J2405; J7120; Q9967

== ENCOUNTER 2023-07-04 11:55 | Outpatient (CLI) | payer BC, SELFPAY ==
--- NOTE | 2023-07-04 12:49 | ECG_ITS ---
Measurements Intervals [place] Rate: 58 P: 53 CT: 168 QRS: 72 QRSD: 101 T: 46 QT: 451 QTc: 444 Interpretive Statements SINUS BRADYCARDIA NO PREVIOUS ECG AVAILABLE FOR COMPARISON Electronically Signed On 07-05-2023 11:09:02 CDT by Cindy Kelly M.D.
== END 2023-07-04 11:56 | disposition home or self-care (01) ==
LOC: ANHSURGERY 12:01
PROVIDERS: PCP Family Medicine Sports Medicine; Visit Provider Surgery
DX: K56.609 Unspecified intestinal obstruction, unspecified as to partial versus complete obstruction (principal); Z01.818 Encounter for other preprocedural examination
CPT/HCPCS: 36415; 86850; 86900; 86901; 93005

== ENCOUNTER 2023-07-11 02:28 | Day surgery (SDC) | payer BC, SELFPAY ==
--- NOTE | 2023-07-04 12:31 | PC.NURSE ---
Report to the Outpatient Waiting Room, entrance under the green pavilion located off [facility], at time _1100 on date __07/11/23 . Planned Procedure Time: _1300 . Time changes happen often and if your time is changed the preop area will call you the afternoon before. - You and your visitor will be asked to self-screen and do not enter if you have any COVID symptoms. - A mask is optional within the hospital at this time. Patients may have clear liquids (water, carbonated beverages, clear teas, apple juice) until 3 hours prior to surgery with a maximum of 20 ounces. - No food from midnight until time of surgery - Infants may have breast milk until 4 hours before surgery, infant formula 6 hours prior to surgery. - Children will be allowed to drink immediately following surgery. If applicable, please bring a bottle or sippy cup to assist with drinking. Juice, water, soda, and popsicles are readily available. For infants on formula, please bring formula the day of surgery. Pacifiers are allowed. Take the following medications with a SIP of water the morning of surgery: FLUOXETINE DO NOT STOP ANY OF YOUR OTHER PRESCRIPTION MEDICATIONS PRIOR TO SURGERY ?EXCEPT THE FOLLOWING Medications to discontinue per physician HOLD VITAMIN D 3 DAYS PRE OP.LAST DOSE 07/07/23 HIBICLENS SHOWER DAY BEFORE AND MORNING OF SURGERY Please no make-up, nail latvian, hairspray, perfume, deodorant, or body powder the day of surgery. No jewelry (including any body piercings) or valuables the day of surgery, leave them at home. Please take a shower or bath the night before, or the morning of, surgery with an antibacterial soap. Wear comfortable, loose fitting clothing. Children are encouraged to wear pajamas. - Jewelry must be removed prior to entering the operating room. Rings and piercings that are not removed may be cut off. - The hospital will not accept responsibility for valuables. - Please leave all valuables, including medications, at home the day of surgery. If you are going home after surgery, a licensed pedicab driver must drive you home. - NO public transportation without another adult if you receive anesthesia. - We recommend that an adult stay with you for 24 hours following discharge. - We also recommend that you do not drive, make important decision, drink alcoholic beverages, or take any drugs that were not prescribed by your health care provider for at least 24 hours after your discharge time. Follow any additional instructions given to you from your surgeon. If you or anyone in your household have experienced Covid symptoms in the past week, please notify your surgeon or the nurse liaison at the phone number below for possible testing. VEBAL AND WRITTEN instructions given to _PATIENT and asked if any additional questions and then verbalized understanding. Patient advised to call surgeon office or pre surgery nurse liaison [phone] if any additional questions.
[2023-07-04 12:50] VITALS: BP 119/72; PULSE 77; RESP 18; TEMP 37; O2SAT 98; BMI 27.8
[2023-07-11] VITALS (14 sets, daily range): BP systolic 91–124; BP diastolic 43–88; PULSE 62–109; RESP 12–24; TEMP 36.2–37.1; O2SAT 94–100
--- NOTE | 2023-07-11 08:44 | WPDANESEPPF ---
Anes - Initial Pre Proc Eval Procedure: Operation Date: 07/11/23 13:00 Proposed Procedures p Diagnostic Laparoscopic Adhesiolysis, Possible Bowel Resection, Possible Open - Agustín Gilliam DO Date/Time: 07/11/23 08:44 Surgeon: Agustín Gilliam DO Pre Op Diagnosis: small bowel obstruction Patient Data Age: 43 Gender: F Height: 1.57 m Weight: 69.1 kg Last Vital Signs Temp 37.0 C 07/04/23 12:50 Pulse 77 07/04/23 12:50 Resp 18 07/04/23 12:50 BP 119/72 07/04/23 12:50 Pulse Ox 98 07/04/23 12:50 O2 Del Method Room Air 07/04/23 12:50 Allergies Allergy/AdvReac Type Severity Reaction Status Date / Time oxcarbazepine Allergy Mild HIVES Verified 07/22/23 10:31 Home Medications Medication Instructions Recorded Confirmed Type fluoxetine 20 mg capsule 20 mg PO DAILY 05/31/23 07/11/23 History cholecalciferol (vitamin D3) 50 50 mcg PO DAILY 07/04/23 07/04/23 History mcg (2,000 unit) capsule Patient hx anesthesia problems: none Family hx anesthesia problems: none Results Review: All pre-operative results and documents have been reviewed as part of the pre-operative evaluation. ON LICENSE OF [facility] Past Medical History Medical History Anxiety Depression Endometriosis Surgical History Surgical History History of laparoscopy History of laparoscopy-assisted vaginal hysterectomy History of umbilical hernia repair Family History Family History Mother Patient's mother is in good health Father Patient's father is in good health Sibling Patient's sister is in good health Other Cerebrovascular accident Social History Social History Smoking packs per day: 1 Smoking cigarettes per day: 20.0 Years smoked: 20 Smoking pack-years: 20.00 Smoking status: Former smoker Tobacco type: cigarettes Smoking end date: 11/14/14 Alcohol intake: current Drinks per week: 10 Alcohol use details: WINE Substance use: former Substance use type: painkillers Other substance usage details: VICODIN AND XANAX Last use: 2011 Lack of Transportation: No Lack of Food: Never True Current Housing: I Have Housing Concerned About Future Housing: No Difficulty Paying Gas/Electric Bills: No Difficulty Paying for Meds: No Currently Unemployed: No Education: High School Diploma/GED Difficulty w/ Childcare or Family Care: No Living arrangements: with family Spiritual care concerns: No Anes - Eval Final PreProcedure Day of Procedure 07/11/23 08:44 Patient weight: overweight Heart: regular rate and rhythm Lungs: clear to auscultation Airway: Mallampati scale class II Neurological: alert and oriented Last oral intake: >/= 8 hours ASA classification: II Emergent: no Anesthetic plan: proceed Anesthesia type and monitoring: general GIVS and standard monitoring Results Review: All pre-operative results and documents have been reviewed as part of the pre-operative evaluation. Informed Consent: The patient's anesthetic plan and its attendant risks and benefits were discussed with the patient/family/POA. Questions were solicited and answers provided to the satisfaction of the patient/family/POA.
[2023-07-11] MEDS: KETOROLAC 15 MG/ML VIAL (*BKC) IV PUSH (11:45)
[2023-07-11] MEDS: ACETAMINOPHEN 500 MG TABLET 1000 MG PO (11:45)
[2023-07-11] MEDS: LACTATED RINGERS 1,000 ML 30 ML IV CONT ×3 (11:45→15:49)
--- NOTE | 2023-07-11 11:59 | WPDHPUPDATE1 ---
History and Physical Update Update Date/Time: 07/11/23 11:59 History and Physical has been reviewed, including an updated exam of the patient. There are NO changes in the patient's condition. Risks, benefits, and alternatives have been discussed and questions answered. Patient agrees to proceed with procedure.
[2023-07-11] MEDS: ceFAZolin 2 GM/D5W 50 ML 2 GM/50 ML BAG IVPB (13:06)
[2023-07-11] MEDS: metroNIDAZOLE 500 MG/ISO 100ML 500 MG/100 ML BAG 100 MG IVPB (13:21)
[2023-07-11] MEDS: BUPIVACAINE/EPINEPHRINE 0.25% 50 ML VIAL 30 ML INFILTRATE (13:30)
--- NOTE | 2023-07-11 13:47 | W.PM.PROC2 ---
Procedure Note - Detailed Date of Procedure 07/11/23 Pre-op Diagnosis small bowel obstruction Post-op Diagnosis Other (No small bowel adhesions, no intra-abdominal abnormalities) Procedure Performed Diagnostic laparoscopy Surgeon Agustín Gilliam, DO Anesthesia General and Local (0.5% bupivacaine with epinephrine) Indications This is a 43-year-old woman who presented to hospital about 6 weeks ago with bloating, nausea, and vomiting and was found to have evidence of a small-bowel obstruction on CT. She had 1 episode similar to this about 6 years prior. Her obstruction resolved with NG decompression and bowel rest. Small-bowel follow-through showed no persistent evidence of obstruction. The patient was seen back in the office in still complained of frequent bloating and poor appetite. She continued to feel full very quickly. Discussions were made with the patient about treatment options and decision was made to proceed with diagnostic laparoscopy, possible adhesiolysis, possible bowel resection, possible open. Findings Diagnostic laparoscopy was performed. A careful thorough inspection was performed around the entire abdominal cavity. The small bowel was carefully run from the ileocecal valve all the way back proximal to the ligament of Treitz. No adhesions were identified throughout the entire small bowel. I also carefully inspected around the appendix, cecum and ascending colon. No abnormalities were noted. The remainder of the colon was carefully inspected as well and all appeared normal. The pelvis was inspected and there did not appear to be significant adhesions down in the pelvis. Description of Procedure Procedure as well as risks, benefits, and alternatives were discussed the patient. Written consent was obtained and placed in chart prior to procedure. Patient was brought back to surgical suite. She was placed supine on operating table. Time-out was done to confirm patient and procedure. She was then intubated by the anesthesia department. Her abdomen was prepped and draped in sterile fashion using chlorhexidine prep. 0.5% bupivacaine with epinephrine was infiltrated locally at each of the port incisions. A 5 mm incision was made in the left upper quadrant a 5 mm Optiview trocar was advanced through the abdominal layers under direct visualization. Once safely within the abdominal cavity, carbon dioxide insufflation was used to create a pneumoperitoneum. The camera was inserted in the abdominal cavity was inspected. The patient was then placed in slight Trendelenburg position rotated to the left. A 5 mm incision was made in the left lower quadrant 5 mm trocars inserted under direct visualization. Another 5 mm incision was made in the left lateral abdomen a 5 mm trocar was placed under direct visualization. Then carefully inspected the entire abdominal cavity. The cecum was identified and this was traced to the terminal ileum. The small bowel was then carefully run from the terminal ileum to the ligament of Treitz using atraumatic graspers. I carefully inspected the entire small bowel throughout its length and did not identify any adhesions. I then carefully inspected the colon and did not identify any significant abnormalities. Pelvis was also inspected the uterus and ovaries were absent, but no significant adhesions were identified down in the pelvis. One final inspection was made around the abdominal cavity no other abnormalities were seen. Patient was then flattened out in bed. The ports were then removed under direct visualization, camera was removed, and the pneumoperitoneum was released. The skin of the incisions was then approximated using 4-0 Monocryl running subcuticular sutures. Exofin glue was then applied on top. The patient was then awakened from anesthesia, extubated, and transferred to recovery. Estimated Blood Loss 5 Complications No immediate complications Condition Stable Disposition Same day
[2023-07-11] MEDS: ONDANSETRON INJ 4 MG/2 ML VIAL IV PUSH (14:06)
[2023-07-11] MEDS: fentaNYL CITRATE INJ (*CRX) 100 MCG/2 ML VIAL 25 MCG IV PUSH ×8 (14:08→14:55)
[2023-07-11] MEDS: MEPERIDINE HCL INJ (*CRX) 50 MG/ML AMPUL 12.5 MG IV PUSH ×2 (14:35→15:04)
[2023-07-11] MEDS: HYDROmorphone HCL INJ (*CRX) 1 MG/ML SYR 0.5 MG IV PUSH (15:38)
== END 2023-07-11 16:50 | disposition home or self-care (01) ==
PROVIDERS: PCP Family Medicine Sports Medicine; Visit Provider Surgery
PROC: (CPT 49320; principal; 2023-07-11 13:00)
DX: K56.609 Unspecified intestinal obstruction, unspecified as to partial versus complete obstruction (principal); Z87.891 Personal history of nicotine dependence
CPT/HCPCS: 49320; A9270; J0690; J1100; J1170; J1836; J1885; J2175; J2250; J2405; J2704; J3010; J7120

== ENCOUNTER 2023-10-18 14:45 | Emergency (ER) | payer BC, SELFPAY ==
--- NOTE | ~2023-10-18 | XR_ITS ---
EXAM: XR hand LT min 3V DATE: 10/18/2023 15:05 HISTORY: pain left 3rd mcp jt area s/p hitting on chair yesterday . COMPARISON: None available. FINDINGS: Normal mineralization. No fracture or dislocation. No lytic or blastic lesion. Joint space s are maintained. No erosion or periosteal change. Soft tissues within normal limits. IMPRESSION: No acute osseous finding in the left hand. Reviewed, dictated and finalized at location K. OGR[facility]
--- NOTE | 2023-10-18 14:52 | ED.UPPEXIN ---
HPI - Extremity Injury (Upper) General Chief Complaint: Extremity Injury, Upper Stated Complaint: Left Hand Pain Time Seen by Provider: 10/18/23 15:28 Source: patient and RN notes reviewed Mode of arrival: ambulatory Limitations: no limitations History of Present Illness HPI narrative: 43-year-old female presents with concern for pain to the 3rd digit of her left hand. She reports yesterday she hit the hand on a chair at her home. She reports pain at the PIP joint, pain with range of motion, tenderness. Reports she used ice. MD complaint: injury to: left and hand Related Data Home Medications Medication Instructions Recorded Confirmed fluoxetine 20 mg capsule 20 mg PO DAILY 05/31/23 10/18/23 cholecalciferol (vitamin D3) 50 50 mcg PO DAILY 07/04/23 10/18/23 mcg (2,000 unit) capsule Allergies Allergy/AdvReac Type Severity Reaction Status Date / Time oxcarbazepine Allergy Mild HIVES Verified 07/22/23 10:31 Review of Systems Review of Systems: CONSTITUTIONAL: Denies malaise, chills, sweats, or fever. SKIN: Denies rash or itching, open skin, laceration, abrasion, redness, warmth MUSCULOSKELETAL: Reports pain and swelling in the 3rd digit of the left hand NEUROLOGIC: Denies numbness, weakness All systems reviewed & are unremarkable except as noted in HPI and below PMFSH Past Medical History Medical History Anxiety Depression Endometriosis Surgical History Surgical History History of laparoscopy History of laparoscopy-assisted vaginal hysterectomy History of umbilical hernia repair Family History Family History Mother Patient's mother is in good health Father Patient's father is in good health Sibling Patient's sister is in good health Other Cerebrovascular accident Social History Social History Smoking packs per day: 1 Smoking cigarettes per day: 20.0 Years smoked: 20 Smoking pack-years: 20.00 Smoking status: Former smoker Tobacco type: cigarettes Smoking end date: 11/14/14 Alcohol intake: current Drinks per week: 10 Alcohol use details: WINE Substance use: former Substance use type: painkillers Other substance usage details: VICODIN AND XANAX Last use: 2011 Lack of Transportation: No Lack of Food: Never True Current Housing: I Have Housing Concerned About Future Housing: No Difficulty Paying Gas/Electric Bills: No Difficulty Paying for Meds: No Currently Unemployed: No Education: High School Diploma/GED Difficulty w/ Childcare or Family Care: No Living arrangements: with family Spiritual care concerns: No Comments At time of signature, agree with nursing past medical, surgical, social and family history. There is no relevant family history pertinent to the presenting complaint Exam Narrative: GENERAL: Well-appearing, well-nourished, and in no acute distress. HEAD: Normocephalic, atraumatic. EYES: PERRLA, conjunctivae clear NECK: Supple. CHEST: Speaks in full sentences. No respiratory distress. HEART: Regular rate and rhythm. Normal and equal peripheral pulses. EXTREMITIES: 3rd digit of the left hand has grossly normal strength and sensation, limited range of motion with flexion. No edema or ecchymosis. Normal sensation with sensitivity to light touch and pain. Tenderness to the base of the digit. no open wounds, no skin tenting, no devitalized tissue or atrophy, no trophic changes, no obvious deformity, alignment normal, nearby joints and structures intact. Distal pulses palpable and equal bilaterally, skin warm, dry, pink. Capillary refill less than 3 seconds. SKIN: Warm, dry, no rash. NEURO: Alert and oriented x3. PSYCH: Normal mood and affect Course Course Emergency Course: Patient is aware of diagno
[2023-10-18 14:55] VITALS: BP 101/61; PULSE 67; RESP 16; TEMP 36.8; O2SAT 100
== END 2023-10-18 15:32 | disposition home or self-care (01) ==
PROVIDERS: Emergency Provider Nurse Practitioner; PCP Family Medicine Sports Medicine
DX: S63.613A Unspecified sprain of left middle finger, initial encounter (principal); W22.8XXA Striking against or struck by other objects, initial encounter; Z87.891 Personal history of nicotine dependence; F41.9 Anxiety disorder, unspecified; F32.A Depression, unspecified; N80.9 Endometriosis, unspecified
CPT/HCPCS: 29130; 73130; 99213; G0463